=== PATIENT | female | born 1955 | race Caucasian/White ===

== ENCOUNTER 2020-08-25 09:38 | Outpatient (CLI) | payer MEDICARE, OTHER, SELFPAY ==
--- NOTE | ~2020-08-25 | MM_ITS ---
EXAMINATION: MM screening kathy BI w heather HISTORY: Screening mammogram TECHNIQUE: Craniocaudal and mediolateral oblique 3-D tomosynthesis images were obtained and synthetic 2-D images were generated. CAD analysis was submitted and interpreted. COMPARISON: 07/21/2018, 09/27/2017, 09/16/2014 bilateral digital screening mammogram examinations BREAST PARENCHYMAL COMPOSITION: There are scattered areas of fibroglandular density. FINDINGS: Stable mild fibroglandular asymmetry. Minimal benign calcification. There is no evidence of suspicious mass, calcification, or architectural distortion to suggest malignancy in either breast. There has been no suspicious interval change. IMPRESSION: 1. No mammographic evidence of malignancy. 2. Recommend routine screening mammography in one year. BI-RADS Category 2: Benign finding(s). Reviewed, dictated and finalized at location A. L TRANSCRIBER
== END 2020-08-25 09:39 | disposition home or self-care (01) ==
LOC: ANHIMG 09:45
PROVIDERS: PCP Internal Medicine; Visit Provider Obstetrics & Gynecology
DX: Z12.31 Encounter for screening mammogram for malignant neoplasm of breast (principal)
CPT/HCPCS: 77063; 77067

== ENCOUNTER 2020-11-10 09:47 | Outpatient (CLI) | payer MEDICARE, OTHER, SELFPAY ==
--- NOTE | 2020-11-10 10:00 | ECG_ITS ---
Measurements Intervals [place] Rate: 84 P: 53 ME: 160 QRS: 14 QRSD: 80 T: 62 QT: 359 QTc: 426 Interpretive Statements SINUS RHYTHM LOW QRS VOLTAGE IN PRECORDIAL LEADS ANTEROSEPTAL INFARCT, AGE INDETERMINATE ABNORMAL ECG Electronically Signed On 11-10-2020 10:05:42 CDT by Venkat Cerrato D.O.
== END 2020-11-10 09:48 | disposition home or self-care (01) ==
PROVIDERS: PCP Internal Medicine; Visit Provider Obstetrics & Gynecology
DX: Z01.810 Encounter for preprocedural cardiovascular examination (principal); E78.00 Pure hypercholesterolemia, unspecified; I25.2 Old myocardial infarction
CPT/HCPCS: 93005

== ENCOUNTER → 2020-11-12 07:02 | Outpatient (CLI) | payer MEDICARE, OTHER, SELFPAY ==
[2020-11-13 00:07] LABS: SARS-CoV-2 RNA PCR Negative
== END ==
PROVIDERS: PCP Internal Medicine; Visit Provider Obstetrics & Gynecology
DX: Z01.812 Encounter for preprocedural laboratory examination (principal); Z20.822 Contact with and (suspected) exposure to COVID-19
CPT/HCPCS: C9803; U0003; U0005

== ENCOUNTER 2020-11-16 02:22 | Day surgery (SDC) | payer MEDICARE, OTHER, SELFPAY ==
[2020-11-09 09:43] VITALS: BMI 26.2
--- NOTE | 2020-11-16 08:45 | PM.IMHP ---
H&P: HPI History of Present Illness Date/Time: 11/16/20 08:45 65 y/o with bright red bleeding after intercourse several times. Ultrasound exam shows an irregular endometrium measuring 1.8mm. Chief Complaint: Bleeding Review of Systems Review of Systems: All systems reviewed & are unremarkable except as noted in HPI and below PMFSH Past Medical History Medical History (Updated 11/16/20 @ 08:49 by Jose Eduardo Canela MD) Anxiety Hyperlipidemia Surgical History Surgical History History of delivery History of cholecystectomy History of knee replacement procedure of right knee History of tubal ligation Family History Family History Other Breast cancer Heart disease Social History Social History Smoking status: Never smoker Living arrangements: alone Gender identity (if verbalized by the patient): Female Spiritual care concerns: No Meds Home Medications and Allergies Home Medications Medication Instructions Recorded Confirmed Type ergocalciferol (vitamin D2) 1,250 mcg PO DAILY 11/09/20 11/09/20 History meloxicam 15 mg PO DAILY 11/09/20 11/09/20 History rosuvastatin 20 mg PO DAILY 11/09/20 11/09/20 History venlafaxine 150 mg PO DAILY 11/09/20 11/09/20 History Allergies Allergy/AdvReac Type Severity Reaction Status Date / Time Penicillins Allergy Unknown HIVES Unverified 11/09/20 09:45 CHILD Assessment and Plan Assessment and plan (1) Postmenopausal bleeding: Code(s): N95.0 - Postmenopausal bleeding Status: Acute Assessment and Plan: A: Postmenopausal bleeding. In spite of her thin endometrium, she has continued to have episodes of postcoital bleeding. P: She desires surgical management of her problem, which I think to be appropriate. I offered her a hysteroscopy with dilation and sharp curettage. She understands risks of surgery to include risks of anesthesia, risks of pain, infection, bleeding, blood products, thromboembolic phenomena and damage to adjacent structures such as bowel, bladder, ureters, blood vessels and nerves. She understands all these risks and elects to proceed with surgery.
--- NOTE | 2020-11-16 12:44 | WPDHPUPDATE1 ---
History and Physical Update Update Date/Time: 11/16/20 12:44 History and Physical has been reviewed, including an updated exam of the patient. There are NO changes in the patient's condition. Risks, benefits, and alternatives have been discussed and questions answered. Patient agrees to proceed with procedure.
[2020-11-16] MEDS: LACTATED RINGERS 1,000 ML 30 ML IV CONT (13:02)
[2020-11-16] MEDS: ACETAMINOPHEN 500 MG TABLET 1000 MG PO (13:03)
--- NOTE | 2020-11-16 13:06 | WPDANESEPPF ---
Anes - Initial Pre Proc Eval Procedure: Operation Date: 11/16/20 14:30 Proposed Procedures p Hysteroscopy Dilation and Curettage - Jose Eduardo Canela MD Date/Time: 11/16/20 13:06 Surgeon: Jose Eduardo Canela MD Pre Op Diagnosis: Post menopausal bleeding Patient Data Age: 65 Gender: F Height: 5 ft 2 in Weight: 66.4 kg Allergies Allergy/AdvReac Type Severity Reaction Status Date / Time Penicillins Allergy Unknown HIVES Verified 11/16/20 13:00 CHILD Home Medications Medication Instructions Recorded Confirmed Type ergocalciferol (vitamin D2) 1,250 mcg PO DAILY 11/09/20 11/16/20 History meloxicam 15 mg PO DAILY 11/09/20 11/16/20 History rosuvastatin 20 mg PO DAILY 11/09/20 11/16/20 History venlafaxine 150 mg PO DAILY 11/09/20 11/16/20 History Patient hx anesthesia problems: none Family hx anesthesia problems: none PMFSH Past Medical History Medical History Anxiety Hyperlipidemia Surgical History Surgical History History of delivery History of cholecystectomy History of knee replacement procedure of right knee History of tubal ligation Family History Family History Other Breast cancer Heart disease Social History Social History Smoking status: Never smoker Living arrangements: alone Gender identity (if verbalized by the patient): Female Spiritual care concerns: No Anes - Eval Final PreProcedure Day of Procedure 11/16/20 13:06 Patient weight: overweight Heart: regular rate and rhythm Lungs: clear to auscultation Airway: Mallampati scale class II Neurological: alert and oriented Last oral intake: >/= 8 hours ASA classification: II Emergent: no Anesthetic plan: proceed Anesthesia type and monitoring: general GIVS and standard monitoring Informed Consent: The patient's anesthetic plan and its attendant risks and benefits were discussed with the patient/family/POA. Questions were solicited and answers provided to the satisfaction of the patient/family/POA.
[2020-11-16 13:17] VITALS: BP 122/71; PULSE 101; RESP 16; TEMP 37.4; O2SAT 97
--- NOTE | 2020-11-16 15:50 | PM.PROC ---
Procedure Note - Detailed Date of procedure: 11/16/20 Pre-op diagnosis: Post menopausal bleeding Post-op diagnosis: same Procedure performed: Hysteroscopy with dilation and sharp curettage Description of procedure: The patient was taken to the operating room where she was prepared and draped in the usual sterile fashion in the dorsal lithotomy position. The bladder was drained with a red rubber catheter. A sterile speculum was placed into the vagina. The anterior lip of the cervix was grasped with single-tooth tenaculum. Ten mL of 1% lidocaine was administered in a paracervical block. The cervix was then gently dilated using Hegar dilators until a 7 mm dilator could be passed. Hysteroscopy was performed using sterile saline as a distention medium. Findings are as noted above. Sharp curettage was then performed, and endometrial curettings were collected on a Telfa pad and passed off to be sent to pathology. Hemostasis was excellent. Sponge, lap, needle and instrument counts were correct. The patient was awakened and taken to the recovery room in stable condition. I was present and scrubbed through the entire procedure. Implants: None Anesthesia: MAC and local (1% lidocaine paracervical block) Surgeon: Jose Eduardo Canela MD Estimated blood loss (mL): 5 Drains: No Packing: No Pathology: yes (endometrial curettings) Complications: None Condition: stable Disposition: PACU Findings: Atrophic-appearing endometrium. Both tubal ostia seen.
[2020-11-16 15:53] VITALS: BP 117/71; PULSE 85; RESP 16; O2SAT 100
[2020-11-16 16:17] VITALS: BP 122/70; PULSE 78; RESP 16; O2SAT 100
[2020-11-16 16:39] VITALS: BP 123/90; PULSE 76; RESP 16
== END 2020-11-16 17:00 | disposition home or self-care (01) ==
PROVIDERS: PCP Internal Medicine; Visit Provider Obstetrics & Gynecology
PROC: 0U5B8ZZ Destruction of Endometrium, Via Natural or Artificial Opening Endoscopic (ICD-10-PCS; CPT 58563; principal; 2020-11-16 14:30)
DX: N95.0 Postmenopausal bleeding (principal); N85.8 Other specified noninflammatory disorders of uterus; E78.5 Hyperlipidemia, unspecified; F41.9 Anxiety disorder, unspecified
CPT/HCPCS: 58558; 88305; A9270; J2704; J3010; J7030; J7120

== ENCOUNTER 2021-10-16 10:31 | Outpatient (CLI) | payer MEDICARE, OTHER, SELFPAY ==
--- NOTE | ~2021-10-16 | MM_ITS ---
EXAMINATION: MM screening kathy BI w heather HISTORY: Screening mammogram, family history of breast cancer in her mother. TECHNIQUE: Craniocaudal and mediolateral oblique 3-D tomosynthesis images were obtained and synthetic 2-D images were generated. CAD analysis was submitted and interpreted. COMPARISON: 08/25/2020, 07/21/2018, 09/27/2017 BREAST PARENCHYMAL COMPOSITION: There are scattered areas of fibroglandular density. FINDINGS: There is no evidence of suspicious mass, calcification, or architectural distortion to sugg est malignancy in either breast. There has been no suspicious interval change. IMPRESSION: 1. No mammographic evidence of malignancy. 2. Recommend routine screening mammography in one year. BI-RADS Category 1: Negative Reviewed, dictated and finalized at location A.
== END 2021-10-16 10:32 | disposition home or self-care (01) ==
LOC: ANHIMG 10:33
PROVIDERS: PCP Family Medicine; Visit Provider Obstetrics & Gynecology
DX: Z12.31 Encounter for screening mammogram for malignant neoplasm of breast (principal)
CPT/HCPCS: 77063; 77067

== ENCOUNTER 2024-12-14 09:04 | Outpatient (CLI) | payer MEDICARE, OTHER, SELFPAY ==
--- NOTE | ~2024-12-14 | MM_ITS ---
EXAMINATION: MM screening kathy BI w heather HISTORY: Screening mammogram, family history of breast cancer in her mother. TECHNIQUE: Craniocaudal and mediolateral oblique 3-D tomosynthesis images were obtained and synthetic 2-D images were generated. CAD analysis was submitted and interpreted. COMPARISON: 01/07/2023, 10/16/2021, 08/25/2020 BREAST PARENCHYMAL COMPOSITION:Not Dense. There are scattered areas of fibroglandular density. FINDINGS: No suspicious mass, calcification, or architectural distortion are identified in either mitchell ast to suggest malignancy. There has been no suspicious interval change. IMPRESSION: No mammographic evidence of malignancy. Recommend routine screening mammography in one year. BI-RADS Category 1: Negative Reviewed, dictated and finalized at location .
--- OUTSIDE RECORDS SUMMARY | 2024-12-14 09:11 | XMS_ITS | Clinical Summary ---
Author Organization [facility] Address [address] [place] [address] Care Team Providers Care Funeral Attendant Name Role Phone Joao Ahuja MD Primary Care Provider Allergies Active Allergy Reactions Criticality Noted Date Comments Penicillins Rash Medium Medications atorvastatin (LIPITOR) 40 mg tabletIndication s:hyperlipidemia Take 40 mg by mouth nightly. 8 Active pramipexole (MIRAPEX) 0.5 mg tabletIndication s:Restless Legs Syndrome Take 0.5 mg by mouth nightly. 8 Active venlafaxine XR (EFFEXOR-XR) 150 mg 24 hr capsuleIndicatio ns:Anxiety with Depression Take 150 mg by mouth nightly. 8 Active cholecalciferol, vitamin D3, (VITAMIN D3 ORAL) Take 1 tablet by mouth nightly. Active oxyCODONE-acetam inophen (PERCOCET) 5-325 mg per tabletIndication s:Pain Take 1-2 tablets by mouth every 4 (four) hours as needed for pain. 70 tablet 9 Active Additional Information Patient not taking.Reported on 04/21/2020 senna-docusate (PERICOLACE) 8.6-50 mgIndications:co nstipation Take 2 tablets by mouth 2 (two) times a day. You may take up to 4 tabs twice daily if needed for constipation. HOLD for diarrhea. 80 tablet 1 9 Active Additional Information Patient not taking.Reported on 07/25/2020 traZODone (DESYREL) 50 mg tablet Active clindamycin (CLEOCIN) 300 mg capsuleIndicatio ns:Prophylaxis, Surgical Take two tabs one hour prior to dental procedures 2 capsule 1 9 Active Additional Information Patient not taking.Reported on 04/21/2020 gabapentin (NEURONTIN) 300 mg capsule Take 1 capsule (300 mg total) by mouth 3 (three) times a day 90 capsule 11 0 Active Additional Information Patient not taking.Reported on 04/21/2020 gabapentin (NEURONTIN) 300 mg capsule Take one capsule by mouth every bedtime. 30 capsule 2 0 Active Additional Information Patient not taking.Reported on 07/25/2020 naloxone (NARCAN) 4 mg/actuation spray,non-aeroso lIndications:Opi oid Toxicity Call 911. Administer a single spray in one nostril. Repeat every 3 minutes as needed if no or minimal response. 1 each 0 Active Additional Information Patient not taking.Reported on 07/25/2020 albuterol HFA (PROVENTIL HFA,VENTOLIN HFA,PROAIR HFA) 90 mcg/actuation inhalerIndicatio ns:Cough, unspecified type Inhale 2 puffs every 6 (six) hours as needed for wheezing 1 each 1 3 Active benzonatate (TESSALON) 100 mg capsuleIndicatio ns:Cough Take 1 capsule (100 mg total) by mouth 3 (three) times a day as needed for cough 42 capsule 3 Active Active Problems Problem Noted Date Diagnosed Date Cough 12/21/2022 Assessment & Plan (12/21/2022 5:59 PM CDT): Rapid COVID negative. PCR pending VSS, except O2 saturation 94-95% , lung with wheezing bilaterally, sinus tenderness Symptom duration 6-7 days with significant worsening Albuterol breathing treatment x 1 offered today in the clinic. Post breathing treatment saturations around 95-96%, lungs with less wheezing bilaterally Order chest x-ray stat today Allergic to penicillin. Levofloxacin 500 mg daily for 10 days and doxycycline 100 mg twice a day for 10 days to cover for possible bacterial sinus infection and lower respiratory tract infection Prednisone 40 mg taper as directed Albuterol inhaler as needed for wheezing, shortness in breath Tessalon Perles as needed for cough Tylenol or Ibuprofen for aches, pains. Take per package directions Delsym (cough suppressant) and Mucinex (cough expectorant) as needed for coughing. Follow package directions Frequent cough drops and lozenges Increase sugar free fluids, especially decaffeinated ones Sleep with head of bed raised to promote drainage Flonase or nasal saline spray, 2 sprays each nostril daily If you are not improving or worsening in the next 5-7 days you must RETURN to the clinic, go to your PCP, or Urgent Care/ER to be SEEN and reevaluated. No further prescriptions or refills will be given by phone without another evaluation. If you develop a high fever 103+, neck stiffness, trouble breathing, chest pain, or other life threatening symptoms GO TO THE ER IMMEDIATELY. Acute sinusitis 12/21/2022 Assessment & Plan (12/21/2022 6:00 PM CDT): Allergic to penicillin. Levofloxacin 500 mg daily for 10 days and doxycycline 100 mg twice a day for 10 days to cover for possible bacterial sinus infection and lower respiratory tract infection Please take the antibiotic until completely gone. I recommend taking Mucinex, a nasal steroid like Flonase and using some nasal/sinus rinses such as nasal sprays or netti pot. HLD (hyperlipidemia) 08/17/2018 CKD (chronic kidney disease) stage 3, GFR 30-59 ml/min 08/17/2018 Chronic pain of right knee 07/21/2018 Overview (07/21/2018): Added automatically from request for surgery [id number] Right knee pain 05/09/2018 Lumbar radiculopathy 07/04/[address] D (sexually transmitted disease) 01/04/2016 Encounter for routine gynecological examination 12/01/2015 Encounters Date Type Department Care Team Description 10/15/2024 11:00 AM CDT Therapy [facility] Hand Off Program [address] [place], [place] [phone] Dahlia Gomez LCSW Family discord [Z63.8] (Primary Dx); MAY (generalized anxiety disorder) [F41.1]; MDD (major depressive disorder), recurrent, 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] from Last 3 Months Surgical History Surgery Date Site/Laterality Comments [place] DELIVERY ONLY Section - (Added by Conv) KNEE SURGERY Knee Surgery - (Added by Conv) HAND SURGERY Hand Surgery - (Added by Conv) FL UPPER GI AIR CONTRAST W KUB 05/26/2020 Bilateral FLUORO GUIDED INJECTION SHOULDER LEFT 09/22/2020 Left Medical History Medical History Date Comments Personal history of other me ntal and behavioral disorders History of anxiety - (Added by Conv) Arthritis Osteoarthritis Family History Medical History Relation Name Comments Diabetes Father Family history of diabetes mellitus - (Added by Conv) Gout Father Family history of gout - (Added by TW Conv) Hypertension Father Family history of hypertension - (Added by TW Conv) Stroke Father Family history of cerebrovascular accident - (Added by Conv) Cancer Mother Family history of malignant neoplasm - (Added by Conv) Alcohol abuse Sister Family history of alcoholism - (Added by Conv) Relation Name Status Comments Father Mother Sister Social History Tobacco Use Types Packs/Day Years Used Date Smoking Tobacco: Never Smokeless Tobacco: Never Alcohol Use Standard Drinks/Week Comments Yes 0 (1 standard drink = 0.6 oz pur e alcohol) RARE [employer] Utilities Answer Date Recorded In the past 12 months has e [employer], gas, oil, or water [employer] threatened to shut off services in your home? No 07/04/2023 Humiliation, Afraid, Rape, and Kick questionnair e Answer Date Recorded Within the last year, have y ou been afraid of your partner or ex-partner? No 07/04/2023 Within the last year, have y ou been humiliated or emotionally abused in other ways by your partner or ex-partner? No Within the last year, have y ou been kicked, hit, slapped, or otherwise physically hurt by your partner or ex-partner? No 07/04/2023 Within the last year, have y ou been raped or forced to have any kind of sexual activity by your partner or ex-partner? No 07/04/2023 Social Connection and Isolat ion Panel [NHANES] Answer Date Recorded In a typical week, how many times do you talk on the phone with family, friends, or neighbors? More than three times a week 07/04/2023 How often do you get togethe r with friends or relatives? Three times a week 07/04/2023 How often do you attend chur ch or synagogue services? Never 07/04/2023 Do you belong to any clubs o r organizations such as sabianism groups, unions, fraternal or athletic groups, or school groups? Yes 07/04/2023 How often do you attend meet ings of the clubs or organizations you belong to? Never 07/04/2023 Are you , , di vorced, , never , or living with a partner? 07/04/2023 AUDIT-C Answer Date Recorded Q1: How often do you have a drink containing alc ohol? 2-3 times a week 07/04/2023 Q2: How many drinks containi ng alcohol do you have on a typical day when you are drinking? 1 or 2 07/04/2023 Q3: How often do you have si x or more drinks on one occasion? Never 07/04/2023 Overall Financial Resource Strain (CARDIA) Answe r Date Recorded How hard is it for you to pa y for the very basics like food, housing, medical care, and heating? Not hard at all 07/04/2023 PHQ-2 Answer Date Recorded PHQ-2 Total Score (If total score is 3 or more points, staff should administer the PHQ-9) 4 07/04/2023 [facility] - Occupational Stress Questionnaire Answer Date Recorded Do you feel stress - tense, restless, nervous, or anxious, or unable to sleep at night because your mind is troubled all the time - these days? Very much 07/04/2023 Exercise Vital Sign Answer Date Recorde d On average, how many days pe r week do you engage in moderate to strenuous exercise (like a brisk walk)? 3 days 07/04/2023 On average, how many minutes do you engage in exercise at this level? 30 min 07/04/2023 Hunger Vital Sign Answer Date Recorded Within the past 12 months, y ou worried that your food would run out before you got the money to buy more. Never true 07/04/20 23 Within the past 12 months, t he food you bought just didn't last and you didn't have money to get more. Never true 07/04/2023 PRAPARE - Transportation Answer Date Re corded In the past 12 months, has l ack of transportation kept you from medical appointments or from getting medications? No 06/07 In the past 12 months, has l ack of transportation kept you from meetings, work, or from getting things needed for daily living? No 07/04/2023 Housing Stability Vital Sign Answer Jose G e Recorded In the last 12 months, was t here a time when you were not able to pay the mortgage or rent on time? No 07/04/2023 In the last 12 months, how many places have you lived? 1 07/04/2023 In the last 12 months, was t here a time when you did not have a steady place to sleep or slept in a chcf (including now)? 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 Gender Identity Not on file Sexual Orientation Not on file Obstetrics History Last Filed Vital Signs Vital Sign Reading Time Taken Comments Blood Pressure 126/84 12/21/2022 2:21 PM CDT Pulse 94 12/21/2022 2:21 PM CDT Temperature 37.3 C (99.2 F) 12/21/2022 2:21 PM CDT Respiratory Rate 16 12/21/2022 2:21 PM CDT Oxygen Saturation 95% 12/21/2022 2:21 PM CDT Inhaled Oxygen Concentration - - Weight 59.9 kg (132 lb) 12/21/2022 2:21 PM CDT Height 157.5 cm (5' 2 ) 12/21/2022 2:21 PM CDT Body Mass Index 24.14 12/21/2022 2:21 PM CDT Plan of Treatment Health Maintenance Due Date Last Done Comments Colon Cancer Screening-Colonoscopy 1955 Osteoporosis Screening-Bone Density Scan 1955 DTaP/Tdap/Td Vaccine (1 - Tdap) 1964 Hepatitis B Screening 1971 Zoster Vaccine (1 of 2) 2003 Breast Cancer Screening-Mammogram 11/30/2016 016 Well Visit 65+ 2018 Pneumococcal vaccine 65+ (2 of 2 - PCV) 05/16/2020 05/16/2019 Fall Risk Assessment 05/26/2021 05/26/2020 Influenza Vaccine (#1) 2024 9, 05/14/2018, 06/17/2017, Additional history exists Depression Screening 07/04/2024 07/04/2023 Hepatitis C Screening Completed 05/30/2020 Medical Devices Implanted Type Area Projection Camera Operator Device Identifier Shelf Expiration Date Model / Serial / Lot [employer] [id number] Simplex P Radiopaque; Full Dose Cement Bone - S0 - [id number] Implanted:Qty: 2 on 08/20/2018 by Bao Abernathy MD at [facility] Bone Cement Right: Knee [employer] 12/02/2020 [id number] / 0 / [id number] [employer] [id number] Persona Cruciate Retain Cemented Knee Right 5 Standard Component - [id number] Implanted:Qty: 1 on 08/20/2018 by Bao Abernathy MD at [facility] Right: Knee [employer] [id number] 05/04/2028 [id number] / / [id number] [employer] [id number] Persona Cemented Stem Knee Right 5d C Baseplate Tibial Tivanium - [id number] Implanted:Qty: 1 on 08/20/2018 by Bao Abernathy MD at [facility] Right: Knee [employer] [id number] 05/04/2028 [id number] 2 / / [id number] [employer] [id number] Persona 10mm Cruciate Retaining Knee Right 3-9 C-D Insert - [id number] Implanted:Qty: 1 on 08/20/2018 by Bao Abernathy MD at [facility] Right: Knee [employer] [id number] 12/02/2024 [id number] / / [id number] Procedures Procedure Name Priority Date/Time Associated Diagnosis Comments HEPATITIS C ANTIBODY Routine 05/30/2020 1:50 PM CDT Prophylactic measure SCREENING MAMMOGRAM Routine 12/01/2015 1 2:06 PM CDT from Last 3 Months or Most Recently Relevant to Health Maintenance Results * Hepatitis C antibody (05/30/2020 1:50 PM CDT) Hep C Ab NON-REACTI VE NON-REACT LESLIE [facility] SIGNAL TO CUT-OFF 0.01 <1.00 [facility] Comment: HCV antibody was non-reactive. There is no laboratory evidence of HCV infection. In most cases, no further action is required. However, if recent HCV exposure is suspected, a test for HCV RNA (test code 57456) is suggested. For additional information please refer to http://education.[employer]/faq/VNZ74a9 (This link is being provided for informational/ educational purposes only.) Blood specimen (specimen) 05/30/2020 1:50 PM CDT 05/30/2020 1:53 PM CDT Narrative [facility] - 05/31/2020 12:25 PM CDT FASTING:NO FASTING: NO Daniel Casanova MD LAB MICROBIOLOGY - GENERAL ORDERABLES Final Result [facility] [address] [place] [address] * Screening Mammogram (12/01/2015 12:06 PM CDT) Anatomical Region Laterality Modality Breast N/A Mammography 12/01/2015 12:0 6 PM CDT Narrative 12/14/2015 1:05 PM CDT RAFFI MANCIA M.D. FINAL REPORT ACC# Date Time Exam [id number] Dec 01, 2015 12:06:00 [facility] [address] Screening Mamm Bilat Technologist(s): Mishel Felix; ; EXAMINATION: Mammogram Technique: Bilateral Full-Field Digital Screening Mammogram was performed. Views obtained: bilateral craniocaudal and bilateral mediolateral oblique. Computer Aided Detection was performed with Tron[employer] Solar.3 version 9.3. Mammogram Findings: The present examination has been compared to prior imaging studies performed on 09/16/2014, 05/20/2013 and 05/15/2012. There are scattered areas of fibroglandular density. There is no suspicious abnormality in either breast. IMPRESSION: Annual screening mammography is recommended. OVERALL FINAL ASSESSMENT: BI-RADS CATEGORY 1: Negative. Requested By: Dictated By: RAFFI MANCIA M.D. on Dec 14 2015 1:05P This document has been electronically signed by: RAFFI MANCIA M.D. on Dec 14 2015 1:05P [id number] Procedure Note Provider, MD Karyna - 12/08/2016 RAFFI MANCIA M.D. FINAL REPORT ACC# Date Time Exam [id number] Dec 01, 2015 12:06:00 [facility] [address] Screening Mamm Bilat Technologist(s): Mishel Felix; ; EXAMINATION: Mammogram Technique: Bilateral Full-Field Digital Screening Mammogram was performed. Views obtained: bilateral craniocaudal and bilateral mediolateral oblique. Computer Aided Detection was performed with Trony Solar.3 version 9.3. Mammogram Findings: The present examination has been compared to prior imaging studies performed on 09/16/2014, 05/20/2013 and 05/15/2012. There are scattered areas of fibroglandular density. There is no suspicious abnormality in either breast. IMPRESSION: Annual screening mammography is recommended. OVERALL FINAL ASSESSMENT: BI-RADS CATEGORY 1: Negative. Requested By: Dictated By: RAFFI MANCIA M.D. on Dec 14 2015 1:05P This document has been electronically signed by: RAFFI MANCIA M.D. on Dec 14 2015 1:05P [id number] Historical Provider MD [facility] MAMMO PROCEDURES Allie l Result from Last 3 Months or Most Recently Relevant to Health Maintenance Insurance MEDICARE [employer] [employer] [place] Member Subscriber Plan / Payer (Ef fective 2018-Present) Name:Kieran Connellydashawn Gray Relation to Subscriber:Self Name:Karen Connelly Marina Payer ID:[id number] Group ID:[id number] Type:COMMERCIAL Address: [address] [facility] [place] [address] MEDICARE [facility] MEDICARE MEDICARE [employer] [place] MEDICARE [place] Advance Directives For more information, please contact: [phone] * Full Code (Latest Code Status on File) Date Activated Date Inactivated Comments 08/20/2018 3:37 PM 08/21/2018 5:16 PM Care Teams Funeral Attendant Relationship Specialty Start Date End Date Joao Ahuja MD PCP - General Internal Medicine 04/09/18
--- OUTSIDE RECORDS SUMMARY | 2024-12-14 09:11 | XMS_ITS | Referral Summary ---
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] from Last 3 Months Allergies Active Allergy Reactions Criticality Noted Date [...] (07/21/2018): Added automatically from request for surgery [id number] Right knee pain 05/09/2018 Lumbar radiculopathy 07/04/[address] D (sexually transmitted disease) 01/04/2016 Encounter for routine gynecological examination 12/01/2015 Social History Tobacco Use Types Packs/Day Years Used Date Smoking Tobacco: Never Smokeless Tobacco: Never Alcohol Use Standard Drinks/Week Comments Yes 0 (1 standard drink = 0.6 oz pur e alcohol) RARE [facility] Utilities Answer Date Recorded In the past 12 months has th e electric, gas, oil, or water company threatened to shut off services in your [...] 07/04/2023 How often do you attend chur or spiritism services? Never 07/04/2023 Do you belong to any clubs o r organizations such as yazdanism groups, unions, fraternal or athletic groups, or [...] staff should administer the PHQ-9) 4 07/04/2023 [facility] Occupational Stress Questionnaire Answer Date Recorded [...] place to sleep or slept in a fdc (including now)? 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 Gender Identity Not on file Sexual Orientation Not on file Last Filed Vital Signs Vital Sign Reading [...] 12/21/2022 2:21 PM CDT Plan of Treatment Not on file Medical Devices Implanted Type Area Electromechanical Equipment Tester Device Identifier Shelf Expiration Date Model / Serial / Lot [employer] [id number] Simplex P Radiopaque; Full Dose Cement Bone - S0 - [id number] Implanted:Qty: 2 on 08/20/2018 by Bao Abernathy MD at [facility] Bone Cement Right: Knee [employer] 12/02/2020 [id number] / 0 / [id number] [employer] [id number] Persona Cruciate Retain Cemented Knee Right 5 Standard Component - [id number] Implanted:Qty: 1 on 08/20/2018 by Bao Abernathy MD at [facility] Right: Knee [employer] [id number] 05/04/2028 [id number] / / [id number] [employer] [id number] Persona Cemented Stem Knee Right 5d C Baseplate Tibial Tivanium - [id number] Implanted:Qty: 1 on 08/20/2018 by Bao Abernathy MD at [facility] Right: Knee [employer] [id number] 05/04/2028 [id number] 2 / / [id number] [employer] [id number] Persona 10mm Cruciate Retaining Knee Right 3-9 C-D Insert - [id number] Implanted:Qty: 1 on 08/20/2018 by Bao Abernathy MD at [facility] Right: Knee [employer] [id number] 12/02/2024 [id number] / / [id number] Procedures Procedure Name Priority Date/Time Associated Diagnosis [...] a test for HCV RNA (test code 99260) is suggested. For additional information please refer to http://education.[employer]/faq/EXW57t7 (This link is being provided for informational/ educational purposes only.) Blood specimen (specimen) 05/30/2020 1:50 PM CDT 05/30/2020 1:53 PM CDT Narrative [facility] - 05/31/2020 12:25 PM CDT FASTING:NO FASTING: NO Daniel Casanova MD LAB MICROBIOLOGY - GENERAL ORDERABLES Final Result [facility] [address] [place] [address] * Screening Mammogram (12/01/2015 12:06 PM CDT) Anatomical Region Laterality Modality Breast N/A Mammography 12/01/2015 12:0 6 PM CDT Narrative 12/14/2015 1:05 PM CDT RAFFI MANCIA M.D. FINAL REPORT ACC# Date Time Exam [id number] Dec 01, 2015 12:06:00 [facility] [address] Screening Mamm Bilat Technologist(s): Mishel Felix; ; EXAMINATION: Mammogram Technique: Bilateral Full-Field Digital Screening Mammogram was performed. Views obtained: bilateral craniocaudal and bilateral mediolateral oblique. Computer Aided Detection was performed with [employer] Elite 1.3 version 9.3. Mammogram Findings: The present examination [...] MANCIA M.D. on Dec 14 2015 1:05P [id number] Procedure Note Provider, Karyna, - 12/08/2016 RAFFI MANCIA M.D. FINAL REPORT ACC# Date Time Exam [id number] Dec 01, 2015 12:06:00 [facility] [id number] Screening Mamm Bilat Technologist(s): Mishel Felix; ; EXAMINATION: Mammogram Technique: Bilateral Full-Field Digital Screening Mammogram was performed. Views obtained: bilateral craniocaudal and bilateral mediolateral oblique. Computer Aided Detection was performed with [employer], [employer] 1.3 version 9.3. Mammogram Findings: The present examination [...] MANCIA M.D. on Dec 14 2015 1:05P [id number] us Historical Provider MD [facility] MAMMO PROCEDURES Allie l Result from Last 3 Months or Most Recently Relevant to Health Maintenance Insurance MEDICARE [facility] MEDICARE [facility] MEDICARE MEDICARE Member Subscriber Plan / Payer ( fective 2018-Present) Name:Karen Connelly Member ID:[id number] Relation to Subscriber:Self Name:Kieran Connellydashawn Gray Subscriber ID:[id number] Payer ID:[id number] Group ID:Not on file Type:MEDICARE TRADITIONAL Address: [place] [phone] [facility] MEDICARE [facility] Advance Directives For more information, please contact: [phone] * Full Code (Latest Code Status on File) Date Activated Date Inactivated Comments 08/20/2018 3:37 PM 08/21/2018 5:16 PM Care Teams Inspector Returned Materials Relationship Specialty Start Date End Date Joao Ahuja MD PCP - General Internal Medicine 04/09/18
--- OUTSIDE RECORDS SUMMARY | 2024-12-14 09:11 | XMS_ITS | Patient Health Record ---
Author Organization [facility] As Sonatype Address [facility] [facility] [address] [place] [address] Care Team Providers Care Linter Operator Name Role Phone Marin BLANKENSHIP, Halie Primary Care Provider Unavaila Scot Hearn Unavailable [phone] Allergies Allergen (clinical drug ingredient) Drug/Non Drug Allergy documented on EMR Reaction Allergy Type Onset Date Status Penicillin Unknown Drug Allergy Active Substance with sulfonamide structure and antibacterial mechanism of action (substance) Sulfa Antibiotics Unknown Drug Allergy Active Results Component Value Reference Range Notes UDT Reviewed date:05/18/2024 06:04:03 PM Interpretation: Performing Lab: Notes/Report: THC P 0 - 50 ng/ml Cocaine N 0 - 300 ng/ml Amphetamine N 0 - 1000 ng/ml Buprenorphine (BUP) N 0 - 10 ng/ml Secobarbital (Bar) N 0 - 300 ng/ml Oxazepam (BZO) N 0 - 300 ng/ml 7-xlxjzztare-3,4-punlqmzq-9,3-diphenylpyrrolidine (LEORA P) N 0 - 300 ng/ml Methamphetamine (MET) N 0 - 1000 ng/ml Methylenedioxymethamphetamine (MDMA) N 0 - 500 ng/ml Morphine (MOP 300/[id number]) N 0 - 300 ng/ml Methadone (MTD) N 0 - 300 ng/ml Phencyclidine (PCP) N 0 - 25 ng/ml Nortriptyline (TCA) N 0 - 1000 ng/ml x N 0 - 300 ng/ml Reason For Referral No Information Medications Medication SIG (Take, Route, Frequency, Duration) Notes Start Date End Date Status Prevagen 10 MG as directed Orally Active Meloxicam 7.5 MG Oral for 90 Days Active buPROPion HCl ER (XL) 150 MG 1 tablet in the morning Orally Once a day for 30 day(s) 11/20/2024 Active Rosuvastatin Calcium 20 MG TAKE 1 TABLET BY MOUTH ONCE DAILY Oral for 90 Days Active Sertraline HCl 100 MG 1 tablet every mor pan Orally Once a day for 30 days Active Sertraline HCl 50 MG 1 tablet Orally Once a day for 30 days take with 100mg tablet Active ARIPiprazole 5 MG 1 tablet Orally Once a day for 30 days Active Sertraline HCl 25 MG 1 tablet daily x 7 days then 2 tablets daily x 7 days Orally Once a day for 14 days 05/15/2024 Not-Taking Social History Tobacco Use: Social History Observation Description Date Details (start date - stop date) Never Smoker NA - NA Sex Assigned At : Social History Observation Description Sex Assigned At Female Tobacco Control (Standard) Question Answer Notes Tobacco use: Nonsmoker AUDIT-C (Standard) Question Answer Notes Did you have a drink contain ing alcohol in the past year? Yes How many drinks did you have on a typical day when you were drinking in the past year? 3 or 4 drinks (1 point) How often did you have a dri nk containing alcohol in the past year? 2 to 3 times a week (3 points) Problems Problem Type SNOMED Code ICD Code Onset Dates Problem Status W/U Status Risk Notes Problem [id number] Major depressive disorder, recurrent, mild (F33.0) Active confirmed Problem [id number] Generalized anxiety disorder (F41.1) Active confirmed Problem [id number] Moderate recurrent major depression (F33.1) Active confirmed Vital Signs Heart Rate 83 /min 11/20/2024 Height-cm 157.48 cm 11/20/2024 Blood pressure diastolic 69 mm Hg 11/20/2024 Weight-kg 62.14 kg 11/20/2024 Height 62 in 11/20/2024 Blood pressure systolic 103 mm Hg 11/20/2024 Weight 137 lbs 11/20/2024 BMI 25.05 kg/m2 11/20/2024 Encounters Encounter Location Date Provider Diagnosis [facility] [address] [facility] [address] [place] [address] 05/15/2024 Scot Yarbrough Generalized anxiety disorder F41.1 ; Major depressive disorder, recurrent, mild F33.0 ; Hypertension, unspecified type 401.9 and Family relationship problem Z63.9 [facility] [address] [facility] [address] [place] [address] 06/16/2024 Scotsolomon Howeoza [facility] [place], [facility] [address] [place] [address] [place] [address] 07/08/2024 Scotsolomon [place] Hypertension, unspecified type 401.9 ; Generalized anxiety disorder F41.1 ; Major depressive disorder, recurrent, mild F33.0 and Family relationship problem Z63.9 [facility] [place], [facility] [address] [place] [address] [place] [address] 08/07/2024 Scotsolomon [place] Generalized anxiety disorder F41.1 ; Family relationship problem Z63.9 and Moderate recurrent major depression F33.1 [facility] [place] [facility] [address] [place] [address] [place] [address] 09/22/2024 Scotsolomon [place] Generalized anxiety disorder F41.1 ; Family relationship problem Z63.9 and Moderate recurrent major depression F33.1 [facility] [place] [facility] [address] [place] [address] [place] [address] 11/20/2024 Scotsolomon [place] Encounter for screen ing for depression Z13.31 ; Encounter for screening for cardiovascular disorders Z13.6 ; Generalized anxiety disorder F41.1 ; Family relationship problem Z63.9 and Moderate recurrent major depression F33.1 [facility] [place] [facility] [address] [place] [address] [place] [address] 05/19/2024 Scotsolomon [place] Major depressive disorder, recurrent, mild F33.0 [facility] [place] [facility] [address] [place] [address] [place] [address] 06/16/2024 Scotsolomon [place] Major depressive disorder, recurrent, mild F33.0 [facility] [place] [facility] [address] [place] [address] [place] [address] 07/16/2024 Scotsolomon [place] Assessments Encounter Date Diagnosis (ICD Code) Assessment Notes Treatment Notes Treatment Clinical Notes Section Notes 05/15/2024 Major depressive disorder, recurrent, mild (ICD-10 - F33.0) start sertraline, Learning About Depression material was published, Learning About How to Get Help During a Mental Health Crisis material was published, Learning About High Blood Pressure material was published, High Blood Pressure: Care Instructions material was published 1. Major Depressive Disorder - Continue therapy sessions with Niyah monthly or every month and a half. - Discontinue Venlafaxine ER 225 mg daily. Continue Venlafaxine ER 150mg x 1 week then decrease Venlafaxine ER to 75mg daily. - Initiate Sertraline treatment starting at 25 mg daily for one week, then escalate to 50 mg daily for the subsequent week, and finally adjust to 100 mg daily. Plan: - Follow up in one month to assess the efficacy of Sertraline and monitor for any adverse effects. 2. Generalized Anxiety Disorder - Maintain monthly or every month and a half therapy sessions with Niyah. - Cease Venlafaxine ER 225 mg daily. - Begin Sertraline at 25 mg daily for the first week, increase to 50 mg daily for the next week, and then adjust to 100 mg daily. Plan: - Encourage engagement in relaxation techniques and coping strategies for anxiety. - Reevaluate the effectiveness of Sertraline and check for side effects in one month. 3. Insomnia - Advise the establishment of a consistent sleep schedule and the practice of good sleep hygiene. Plan: - Assess the impact of Sertraline on sleep quality at the one-month follow-up. 4. Family Estrangement - Support continuation of therapy with Niyah to address and manage family issues. 05/15/2024 Generalized anxiety disorder (ICD-10 - F41.1) Generalized Anxiety Disorder: Care Instructions material was published, Learning About Generalized Anxiety Disorder material was published, Learning About Anxiety Disorders material was published 1. Major Depressive Disorder - Continue therapy sessions with Niyah monthly or every month and a half. - Discontinue Venlafaxine ER 225 mg daily. Continue Venlafaxine ER 150mg x 1 week then decrease Venlafaxine ER to 75mg daily. - Initiate Sertraline treatment starting at 25 mg daily for one week, then escalate to 50 mg daily for the subsequent week, and finally adjust to 100 mg daily. Plan: - Follow up in one month to assess the efficacy of Sertraline and monitor for any adverse effects. 2. Generalized Anxiety Disorder - Maintain monthly or every month and a half therapy sessions with Niyah. - Cease Venlafaxine ER 225 mg daily. - Begin Sertraline at 25 mg daily for the first week, increase to 50 mg daily for the next week, and then adjust to 100 mg daily. Plan: - Encourage engagement in relaxation techniques and coping strategies for anxiety. - Reevaluate the effectiveness of Sertraline and check for side effects in one month. 3. Insomnia - Advise the establishment of a consistent sleep schedule and the practice of good sleep hygiene. Plan: - Assess the impact of Sertraline on sleep quality at the one-month follow-up. 4. Family Estrangement - Support continuation of therapy with Niyah to address and manage family issues. 05/19/2024 Major depressive disorder, recurrent, mild (ICD-10 - F33.0) 06/16/2024 Major depressive disorder, recurrent, mild (ICD-10 - F33.0) 07/08/2024 Hypertension, unspecified type (ICD9-CM - 401.9) 1. Major Depressive Disorder: - Patient reports improvement in mood and functioning since starting sertraline. Plan: - Increase sertraline to 150 mg daily (add 50 mg to the current 100 mg dose). - Continue monitoring mood and functioning at follow-up appointments. 2. Generalized Anxiety Disorder: - Patient continues to experience anxiety related to daily tasks and family issues. Plan: - Continue working on anxiety management with the current therapist. - Monitor progress and adjust medications as needed during follow-up appointments. 3. Venlafaxine taper: - Patient is currently on 75 mg ER venlafaxine and is being tapered off. Plan: - Decrease venlafaxine ER to 37.5 mg for 2 weeks and then discontinue. - Monitor for withdrawal symptoms and mood changes during follow-up appointments. 4. Eating difficulties: - Patient reports some improvement in eating habits but still struggles with appetite and food intake. Plan: - Encourage continued efforts to improve eating habits. - Monitor progress during follow-up appointments. 5. Family stressors: - Patient is experiencing significant distress related to family dynamics and estrangement from her children and grandchildren. Plan: - Encourage continued work with the therapist to address these issues and develop coping strategies. - Monitor the impact of family stressors on mental health during follow-up appointments. Follow-up: - Schedule a follow-up appointment in one month to assess patient's progress, medication adjustments, and overall mental health. 08/07/2024 Generalized anxiety disorder (ICD-10 - F41.1) 1. Major Depressive Disorder: - Patient reports worsening depression and anxiety since the last visit. - Off venlafaxine and currently on sertraline 150 mg. - Experiencing difficulty sleeping, lack of motivation, increased time spent on the couch. - Reports loss of identity and struggles with relationships with children and grandchildren. Plan: - Add aripiprazole (Abilify) 2 mg daily as an adjunctive treatment to sertraline. - Monitor response to Abilify and adjust dosage as needed. - Encourage engagement in therapy or support groups for identity and relationship issues. 2. Anxiety: - Patient reports anxiety has not improved and may have worsened since last visit. - Currently on sertraline 150 mg. Plan: - Add aripiprazole (Abilify) 2 mg daily as an adjunctive treatment to sertraline. - Monitor response to Abilify and adjust dosage as needed. - Encourage relaxation techniques like deep breathing, meditation, or yoga. 3. Insomnia: - Patient reports difficulty falling asleep, normal bedtime 10:30-11:00 PM but not sleeping until after 1:00 AM. - Difficulty waking up, staying in bed until 10:00 AM. Plan: - Address depression and anxiety with addition of Abilify 2 mg daily. - Encourage good sleep hygiene practices. - Monitor sleep patterns and consider further evaluation if insomnia persists. 4. Relationship issues: - Patient struggling with relationships with children and grandchildren. - Feeling disconnected and uninvolved in their lives. Plan: - Encourage engagement in therapy or support groups. - Suggest family therapy or mediation to improve communication. - Encourage maintaining open lines of communication with family members. 08/07/2024 Family relationship problem (ICD-10 - Z63.9) cont Counseling 1. Major Depressive Disorder: - Patient reports worsening depression and anxiety since the last visit. - Off venlafaxine and currently on sertraline 150 mg. - Experiencing difficulty sleeping, lack of motivation, increased time spent on the couch. - Reports loss of identity and struggles with relationships with children and grandchildren. Plan: - Add aripiprazole (Abilify) 2 mg daily as an adjunctive treatment to sertraline. - Monitor response to Abilify and adjust dosage as needed. - Encourage engagement in therapy or support groups for identity and relationship issues. 2. Anxiety: - Patient reports anxiety has not improved and may have worsened since last visit. - Currently on sertraline 150 mg. Plan: - Add aripiprazole (Abilify) 2 mg daily as an adjunctive treatment to sertraline. - Monitor response to Abilify and adjust dosage as needed. - Encourage relaxation techniques like deep breathing, meditation, or yoga. 3. Insomnia: - Patient reports difficulty falling asleep, normal bedtime 10:30-11:00 PM but not sleeping until after 1:00 AM. - Difficulty waking up, staying in bed until 10:00 AM. Plan: - Address depression and anxiety with addition of Abilify 2 mg daily. - Encourage good sleep hygiene practices. - Monitor sleep patterns and consider further evaluation if insomnia persists. 4. Relationship issues: - Patient struggling with relationships with children and grandchildren. - Feeling disconnected and uninvolved in their lives. Plan: - Encourage engagement in therapy or support groups. - Suggest family therapy or mediation to improve communication. - Encourage maintaining open lines of communication with family members. 09/22/2024 Generalized anxiety disorder (ICD-10 - F41.1) 11/20/2024 Encounter for screening for depression (ICD-10 - Z13.31) 08/07/2024 Moderate recurrent major depression (ICD-10 - F33.1) 1. Major Depressive Disorder: - Patient reports worsening depression and anxiety since the last visit. - Off venlafaxine and currently on sertraline 150 mg. - Experiencing difficulty sleeping, lack of motivation, increased time spent on the couch. - Reports loss of identity and struggles with relationships with children and grandchildren. Plan: - Add aripiprazole (Abilify) 2 mg daily as an adjunctive treatment to sertraline. - Monitor response to Abilify and adjust dosage as needed. - Encourage engagement in therapy or support groups for identity and relationship issues. 2. Anxiety: - Patient reports anxiety has not improved and may have worsened since last visit. - Currently on sertraline 150 mg. Plan: - Add aripiprazole (Abilify) 2 mg daily as an adjunctive treatment to sertraline. - Monitor response to Abilify and adjust dosage as needed. - Encourage relaxation techniques like deep breathing, meditation, or yoga. 3. Insomnia: - Patient reports difficulty falling asleep, normal bedtime 10:30-11:00 PM but not sleeping until after 1:00 AM. - Difficulty waking up, staying in bed until 10:00 AM. Plan: - Address depression and anxiety with addition of Abilify 2 mg daily. - Encourage good sleep hygiene practices. - Monitor sleep patterns and consider further evaluation if insomnia persists. 4. Relationship issues: - Patient struggling with relationships with children and grandchildren. - Feeling disconnected and uninvolved in their lives. Plan: - Encourage engagement in therapy or support groups. - Suggest family therapy or mediation to improve communication. - Encourage maintaining open lines of communication with family members. 09/22/2024 Family relationship problem (ICD-10 - Z63.9) cont Counseling 07/08/2024 Generalized anxiety disorder (ICD-10 - F41.1) 1. Major Depressive Disorder: - Patient reports improvement in mood and functioning since starting sertraline. Plan: - Increase sertraline to 150 mg daily (add 50 mg to the current 100 mg dose). - Continue monitoring mood and functioning at follow-up appointments. 2. Generalized Anxiety Disorder: - Patient continues to experience anxiety related to daily tasks and family issues. Plan: - Continue working on anxiety management with the current therapist. - Monitor progress and adjust medications as needed during follow-up appointments. 3. Venlafaxine taper: - Patient is currently on 75 mg ER venlafaxine and is being tapered off. Plan: - Decrease venlafaxine ER to 37.5 mg for 2 weeks and then discontinue. - Monitor for withdrawal symptoms and mood changes during follow-up appointments. 4. Eating difficulties: - Patient reports some improvement in eating habits but still struggles with appetite and food intake. Plan: - Encourage continued efforts to improve eating habits. - Monitor progress during follow-up appointments. 5. Family stressors: - Patient is experiencing significant distress related to family dynamics and estrangement from her children and grandchildren. Plan: - Encourage continued work with the therapist to address these issues and develop coping strategies. - Monitor the impact of family stressors on mental health during follow-up appointments. Follow-up: - Schedule a follow-up appointment in one month to assess patient's progress, medication adjustments, and overall mental health. 11/20/2024 Encounter for screening for cardiovascular disorders (ICD-10 - Z13.6) 05/15/2024 Hypertension, unspecified type (ICD9-CM - 401.9) 1. Major Depressive Disorder - Continue therapy sessions with Niyah monthly or every month and a half. - Discontinue Venlafaxine ER 225 mg daily. Continue Venlafaxine ER 150mg x 1 week then decrease Venlafaxine ER to 75mg daily. - Initiate Sertraline treatment starting at 25 mg daily for one week, then escalate to 50 mg daily for the subsequent week, and finally adjust to 100 mg daily. Plan: - Follow up in one month to assess the efficacy of Sertraline and monitor for any adverse effects. 2. Generalized Anxiety Disorder - Maintain monthly or every month and a half therapy sessions with Niyah. - Cease Venlafaxine ER 225 mg daily. - Begin Sertraline at 25 mg daily for the first week, increase to 50 mg daily for the next week, and then adjust to 100 mg daily. Plan: - Encourage engagement in relaxation techniques and coping strategies for anxiety. - Reevaluate the effectiveness of Sertraline and check for side effects in one month. 3. Insomnia - Advise the establishment of a consistent sleep schedule and the practice of good sleep hygiene. Plan: - Assess the impact of Sertraline on sleep quality at the one-month follow-up. 4. Family Estrangement - Support continuation of therapy with Niyah to address and manage family issues. 05/15/2024 Family relationship problem (ICD-10 - Z63.9) cont Counseling 1. Major Depressive Disorder - Continue therapy sessions with Niyah monthly or every month and a half. - Discontinue Venlafaxine ER 225 mg daily. Continue Venlafaxine ER 150mg x 1 week then decrease Venlafaxine ER to 75mg daily. - Initiate Sertraline treatment starting at 25 mg daily for one week, then escalate to 50 mg daily for the subsequent week, and finally adjust to 100 mg daily. Plan: - Follow up in one month to assess the efficacy of Sertraline and monitor for any adverse effects. 2. Generalized Anxiety Disorder - Maintain monthly or every month and a half therapy sessions with Niyah. - Cease Venlafaxine ER 225 mg daily. - Begin Sertraline at 25 mg daily for the first week, increase to 50 mg daily for the next week, and then adjust to 100 mg daily. Plan: - Encourage engagement in relaxation techniques and coping strategies for anxiety. - Reevaluate the effectiveness of Sertraline and check for side effects in one month. 3. Insomnia - Advise the establishment of a consistent sleep schedule and the practice of good sleep hygiene. Plan: - Assess the impact of Sertraline on sleep quality at the one-month follow-up. 4. Family Estrangement - Support continuation of therapy with Niyah to address and manage family issues. 07/08/2024 Major depressive disorder, recurrent, mild (ICD-10 - F33.0) sertraline 1. Major Depressive Disorder: - Patient reports improvement in mood and functioning since starting sertraline. Plan: - Increase sertraline to 150 mg daily (add 50 mg to the current 100 mg dose). - Continue monitoring mood and functioning at follow-up appointments. 2. Generalized Anxiety Disorder: - Patient continues to experience anxiety related to daily tasks and family issues. Plan: - Continue working on anxiety management with the current therapist. - Monitor progress and adjust medications as needed during follow-up appointments. 3. Venlafaxine taper: - Patient is currently on 75 mg ER venlafaxine and is being tapered off. Plan: - Decrease venlafaxine ER to 37.5 mg for 2 weeks and then discontinue. - Monitor for withdrawal symptoms and mood changes during follow-up appointments. 4. Eating difficulties: - Patient reports some improvement in eating habits but still struggles with appetite and food intake. Plan: - Encourage continued efforts to improve eating habits. - Monitor progress during follow-up appointments. 5. Family stressors: - Patient is experiencing significant distress related to family dynamics and estrangement from her children and grandchildren. Plan: - Encourage continued work with the therapist to address these issues and develop coping strategies. - Monitor the impact of family stressors on mental health during follow-up appointments. Follow-up: - Schedule a follow-up appointment in one month to assess patient's progress, medication adjustments, and overall mental health. 11/20/2024 Generalized anxiety disorder (ICD-10 - F41.1) 09/22/2024 Moderate recurrent major depression (ICD-10 - F33.1) 07/08/2024 Family relationship problem (ICD-10 - Z63.9) cont Counseling 1. Major Depressive Disorder: - Patient reports improvement in mood and functioning since starting sertraline. Plan: - Increase sertraline to 150 mg daily (add 50 mg to the current 100 mg dose). - Continue monitoring mood and functioning at follow-up appointments. 2. Generalized Anxiety Disorder: - Patient continues to experience anxiety related to daily tasks and family issues. Plan: - Continue working on anxiety management with the current therapist. - Monitor progress and adjust medications as needed during follow-up appointments. 3. Venlafaxine taper: - Patient is currently on 75 mg ER venlafaxine and is being tapered off. Plan: - Decrease venlafaxine ER to 37.5 mg for 2 weeks and then discontinue. - Monitor for withdrawal symptoms and mood changes during follow-up appointments. 4. Eating difficulties: - Patient reports some improvement in eating habits but still struggles with appetite and food intake. Plan: - Encourage continued efforts to improve eating habits. - Monitor progress during follow-up appointments. 5. Family stressors: - Patient is experiencing significant distress related to family dynamics and estrangement from her children and grandchildren. Plan: - Encourage continued work with the therapist to address these issues and develop coping strategies. - Monitor the impact of family stressors on mental health during follow-up appointments. Follow-up: - Schedule a follow-up appointment in one month to assess patient's progress, medication adjustments, and overall mental health. 11/20/2024 Family relationship problem (ICD-10 - Z63.9) cont Counseling 11/20/2024 Moderate recurrent major depression (ICD-10 - F33.1) 05/15/2024 Other Learning About Guided Imagery for Stress material was published, Learning About Progressive Muscle Relaxation for Stress material was published, Learning About Mindfulness for Stress material was published 1. Major Depressive Disorder - Continue therapy sessions with Niyah monthly or every month and a half. - Discontinue Venlafaxine ER 225 mg daily. Continue Venlafaxine ER 150mg x 1 week then decrease Venlafaxine ER to 75mg daily. - Initiate Sertraline treatment starting at 25 mg daily for one week, then escalate to 50 mg daily for the subsequent week, and finally adjust to 100 mg daily. Plan: - Follow up in one month to assess the efficacy of Sertraline and monitor for any adverse effects. 2. Generalized Anxiety Disorder - Maintain monthly or every month and a half therapy sessions with Niyah. - Cease Venlafaxine ER 225 mg daily. - Begin Sertraline at 25 mg daily for the first week, increase to 50 mg daily for the next week, and then adjust to 100 mg daily. Plan: - Encourage engagement in relaxation techniques and coping strategies for anxiety. - Reevaluate the effectiveness of Sertraline and check for side effects in one month. 3. Insomnia - Advise the establishment of a consistent sleep schedule and the practice of good sleep hygiene. Plan: - Assess the impact of Sertraline on sleep quality at the one-month follow-up. 4. Family Estrangement - Support continuation of therapy with Niyah to address and manage family issues. 08/07/2024 Other Aripiprazole Oral Tablet 2 mg (ARIPIPRAZOLE - ORAL) material was published, Learning About Movement Disorders From Antipsychotic Medicines material was published, Aripiprazole Oral Tablet 2 mg (ARIPIPRAZOLE - ORAL) material was published, Learning About Movement Disorders From Antipsychotic Medicines material was published, Diet and Exercise for Metabolic Syndrome: Care Instructions material was published 1. Major Depressive Disorder: - Patient reports worsening depression and anxiety since the last visit. - Off venlafaxine and currently on sertraline 150 mg. - Experiencing difficulty sleeping, lack of motivation, increased time spent on the couch. - Reports loss of identity and struggles with relationships with children and grandchildren. Plan: - Add aripiprazole (Abilify) 2 mg daily as an adjunctive treatment to sertraline. - Monitor response to Abilify and adjust dosage as needed. - Encourage engagement in therapy or support groups for identity and relationship issues. 2. Anxiety: - Patient reports anxiety has not improved and may have worsened since last visit. - Currently on sertraline 150 mg. Plan: - Add aripiprazole (Abilify) 2 mg daily as an adjunctive treatment to sertraline. - Monitor response to Abilify and adjust dosage as needed. - Encourage relaxation techniques like deep breathing, meditation, or yoga. 3. Insomnia: - Patient reports difficulty falling asleep, normal bedtime 10:30-11:00 PM but not sleeping until after 1:00 AM. - Difficulty waking up, staying in bed until 10:00 AM. Plan: - Address depression and anxiety with addition of Abilify 2 mg daily. - Encourage good sleep hygiene practices. - Monitor sleep patterns and consider further evaluation if insomnia persists. 4. Relationship issues: - Patient struggling with relationships with children and grandchildren. - Feeling disconnected and uninvolved in their lives. Plan: - Encourage engagement in therapy or support groups. - Suggest family therapy or mediation to improve communication. - Encourage maintaining open lines of communication with family members. 09/22/2024 Other 1. Anxiety: - Patient reports a decrease in anxiety levels and improvement in overall mood. - Engaging in activities such as knitting to reduce phone usage and bring positivity. - Currently on sertraline 150 mg and Abilify 2 mg. Plan: - Continue sertraline 150 mg. - Increase Abilify to 5 mg. - Reassess in 2 months. 2. Family-related stress: - Patient discussed difficulties with her son and daughter. - Made efforts to separate her life from theirs to maintain mental well-being. - Avoiding negative influences on social media and focusing on positive activities. Plan: - Encourage continued self-care and boundary-settin g with family members. - Recommend seeking therapy or support groups if needed. 3. Adjustment to aging: - Patient is in her [age]ies and expressed challenges in adjusting to this stage of life. - Reports not feeling miserable and is finding ways to cope. Plan: - Encourage continued engagement in hobbies and activities that bring taisha and positivity. - Monitor for any signs of depression or increased anxiety related to aging. 4. Tremors: - Patient reports improvement in body stiffness and shaking. - Able to perform daily tasks such as applying eyeliner more easily. Plan: - Increase Abilify to 5 mg. - Monitor for further improvement in tremors. - Reassess in 2 months. 5. Medication follow-up: Plan: - Schedule a follow-up appointment in 2 months. - Assess the effectiveness of the increased Abilify dosage and overall mental health status. - Adjust medications as needed based on patient's progress and symptoms. 11/20/2024 Miladys Connelly, female patient with history of depression, presents with ongoing depressive symptoms, worsening tremors, and difficulty with focus and concentration. Major Depressive Disorder Assessment: Patient reports feeling okay, pretty good I guess regarding depression symptoms. She remains active but expresses significant distress over missing her grandchildren, stating I didn't do anything to deserve this. Patient also reports worsening focus and concentration, describing inability to complete tasks, return phone calls, or engage in activities. These symptoms suggest ongoing depression with potential worsening of executive function. Plan: - Continue sertraline 150 mg PO daily - Add bupropion XL 150 mg PO daily in the morning - Informed patient of potential benefits: improved focus, concentration, energy, and enjoyment of activities - Advised to take in the morning to avoid fatigue - Follow-up appointment in one month to assess response to medication changes Tremor Assessment: Patient reports worsening tremors, particularly noticeable in her legs while watching TV and in her hands when applying makeup in the morning. She expresses concern about possible Parkinson's disease. The tremor appears to be present throughout the day but is worse in the morning and evening. Patient states her primary care physician has evaluated the tremor and deemed it okay. Given the worsening nature and impact on daily activities, further evaluation may be warranted. Plan: - Reassured patient that current symptoms are unlikely to indicate Parkinson's disease - Recommend follow-up with primary care physician for re-evaluation of worsening tremor the note is transcribed using speech recognition software. It is a reflection of a visit with the patient. It might have some inaccuracy, including medication names and transcribing errors, though efforts have been made to correct them. Plan Of Treatment Next Appt Details Provider Name:Scot jim, 12/18/2024 01:30:00 PM, [address], [facility] [address], [place], [address], Insurance Providers Payer Name Payer Address Payer Phone Subscriber Number Group Number Insured Name Patient Relationship to Insured Coverage Start Date Coverage End Date Medicare-I l Medicare [address] [place] [address] [id number] Karen Connelly Self - patient is the insured [employer] [address] [place] [address] [id number] Karen Connelly Self - patient is the insured Medical (General) History Medical History History ICD Code Past Psychiatric History: Anxiety Disord er Imported from [employer]: Th e patient has had multiple encounters with healthcare providers from December 2023 to September 2024. The patient's primary healthcare provider appears to be Halie Funes NP at [facility]. The patient has been dealing with several health issues including hyperlipidemia, back stiffness, low back pain, lumbar radiculopathy, hematuria, and urinary tract infection. The patient also has a history of mental health issues, including generalized anxiety disorder and major depressive disorder, for which they have been receiving therapy from Dahlia Gomez LCSW at [facility]. The patient was hospitalized multiple times in August and September 2024 for back-related issues. The patient was discharged from [facility] on September 23, 2024.
--- OUTSIDE RECORDS SUMMARY | 2024-12-14 09:11 | XMS_ITS | Clinical Summary ---
Author Organization [facility] Address [address] [place] [address] Care Team Providers Care Account Support Analyst Name Role Phone Halie Funes PATTIE Primary Care Provider [phone] Allergies Active Allergy Reactions Criticality Noted Date Comments Penicillins Rash Low 03/20/2023 Sulfa Antibiotics Other (see comment) Sensitivity to sun Terbinafine Hives High 08/12/2024 Hives and sores Medications ARIPiprazole (ABILIFY) 2 MG tablet Take 1 tablet (2 mg total) by mouth daily. 08/07/19 25 Active sertraline (ZOLOFT) 100 MG tablet Take 1 tablet (100 mg total) by mouth every morning. FOR 14 DAYS 07/17/20 24 Active sertraline (ZOLOFT) 50 MG tablet TAKE 1 TABLET BY MOUTH ONCE DAILY WITH 100MG TABLET 08/07/19 25 Active rosuvastatin (CRESTOR) 20 MG tabletIndications: Hyperlipidemia, unspecified hyperlipidemia type Take 1 tablet by mouth once daily 90 tablet 09/21/19 25 Active meloxicam (MOBIC) 7.5 MG tabletIndications: Arthralgia, unspecified joint Take 1 tablet by mouth once daily 90 tablet 12/10/19 25 Active meloxicam (MOBIC) 7.5 MG tabletIndications: Arthralgia, unspecified joint Take 1 tablet by mouth once daily 90 tablet 09/10/19 25 025 Discontinued Encounters Date Type Department Care Team Description 09/23/2024 Discharge [facility] [place] [address] Dinah Che, [place] from Last 3 Months Family History Medical History Relation Comments Stroke Father Breast Cancer Mother Relation Status Comments Daughter Alive Father Mother Sister Son Alive Social History Tobacco Use Types Packs/Day Years Used Date Smoking Tobacco: Never Smokeless Tobacco: Never Tobacco Cessation:Counseling Given: No Alcohol Use Standard Drinks/Week Comments Yes 8.3 (1 standard drink = 0.6 oz p ure alcohol) socially PHQ-2 Answer Date Recorded Patient Health Questionnaire-2 Score 0 08/31/2024 Comments No Sex and Gender Information Value Date Recorded Sex Assigned at Female 08/18/2024 10:08 AM LETTER OF CREDIT CLERK Legal Sex Female 8:00 PM CDT Gender Identity Female 09/14/2024 11:13 AM LETTER OF CREDIT CLERK Sexual Orientation Not on file Last Filed Vital Signs Vital Sign Reading Time Taken Comments Blood Pressure 158/72 08/12/2024 2:09 PM LETTER OF CREDIT CLERK Pulse 97 08/12/2024 2:09 PM LETTER OF CREDIT CLERK Temperature 37.8 C (100 F) 08/12/2024 2:09 PM LETTER OF CREDIT CLERK Respiratory Rate 18 08/12/2024 2:09 PM LETTER OF CREDIT CLERK Oxygen Saturation 97% 08/12/2024 2:09 PM LETTER OF CREDIT CLERK Inhaled Oxygen Concentration - - Weight 59.7 kg (131 lb 11.2 oz) 08/12/2024 2:09 PM LETTER OF CREDIT CLERK Height 154.9 cm (5' 1 ) 08/12/2024 2:09 PM LETTER OF CREDIT CLERK Body Mass Index 24.88 08/12/2024 2:09 PM LETTER OF CREDIT CLERK Plan of Treatment Upcoming Encounters Date Type Department Care Team (Late st Contact Info) Description 02/15/2025 11:00 AM CDT Telemedicine [facility] Family Medicine - [address] [phone] [place] [address] Health Maintenance Due Date Last Done Comments Colorectal Cancer Screening Colonoscopy (10 Years) 1953 Hepatitis C 1971 DTaP, Tdap and Td Vaccines (1 - Tdap) 1972 Mammogram Screening 1993 Zoster Vaccines (1 of 2) 2003 Annual Medicare Wellness Visit 2018 Dexa Scan (General) 2018 Pneumococcal Vaccine: 50+ Years (2 of 2 - PCV) 05/16/2020 05/16/2019 COVID-19 Vaccine ( season) 2024 02/27/2022, 06/07/2021, 10/23/2020, Additional history exists RSV Immunization or 60+ Years (1 - 1-dose 75+ series) 2028 PHQ-2 (Physician [place]) Completed 08/31/2024 Meningococcal B Vaccine Aged Out No l onger eligible based on patient's age to complete this topic Meningococcal Vaccine Aged Out No gabriela nataliia eligible based on patient's age to complete this topic RSV Immunizations Under 20 Months Aged Out No longer eligible based on patient's age to complete this topic Insurance MEDICARE [facility] Socialize INSURANCE [employer] Care Teams Account Support Analyst Relationship Specialty Start Date End Date [place] [address] PCP - General NURSE PRACTITIONER 02/14/23
--- OUTSIDE RECORDS SUMMARY | 2024-12-14 09:11 | XMS_ITS | Clinical Summary ---
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 Gender Identity Not on file Sexual Orientation Not on file Plan of Treatment Health Maintenance Due Date Last Done Comments DEXA Bone Density 1955 Hepatitis C Virus (HCV) Screening 1955 TdaP Immunization 1955 Colonoscopy 1998 Colorectal Cancer Screening 1998 Cologuard 2003 Immunochemical Fecal Occult Blood 2003 Mammogram 2003 Pneumococcal Immunization (5 0+ years) (1 of 1 - PCV) 2003 Zoster Immunization (1 of 2) 2003 Influenza Immunization (#1) 2024 SARS-COV-2 Immunization ( - season) 2024 Respiratory Syncytial Virus (RSV) Immunization (Adult) (1 - 1-dose 75+ series) 2028 Hepatitis B Immunization Aged Out No longer eligible based on patient's age to complete this topic Meningococcal Immunization (ACWY) Aged Out No longer eligible based on patient's age to complete this topic Rotavirus Immunization Aged Out No lo nger eligible based on patient's age to complete this topic
== END 2024-12-14 09:05 | disposition home or self-care (01) ==
LOC: ANHIMG 09:06
PROVIDERS: PCP Nurse Practitioner; Visit Provider Obstetrics & Gynecology
DX: Z12.31 Encounter for screening mammogram for malignant neoplasm of breast (principal)
CPT/HCPCS: 77063; 77067